=== PATIENT | female | born 1945 | race Caucasian/White ===

== ENCOUNTER → 2018-11-04 | Outpatient (CLI) | payer MEDICARE | END | disposition home or self-care (01) | LOC: PCVCCLINIC 11:50 | PROVIDERS: ATTEND Internal Medicine | DX: R01.1 Cardiac murmur, unspecified (principal); I10 Essential (primary) hypertension; E78.5 Hyperlipidemia, unspecified; E11.9 Type 2 diabetes mellitus without complications; M19.90 Unspecified osteoarthritis, unspecified site | CPT/HCPCS: 93005; G0463 ==

== ENCOUNTER → 2018-11-15 | Outpatient (CLI) | payer MEDICARE ==
--- NOTE | 2018-11-15 12:55 | PCVCIMAG ---
APPROVED REPORT Study performed: 11/15/2018 09:18:20 EXAM: Comprehensive 2D, Doppler, and color-flow Echocardiogram Patient Location: Echo lab Status: routine BSA: 1.80 HR: 72 bpmBP: 144/80 mmHg Rhythm: NSR Other Information Study Quality: Adequate Risk Factors: Cardiac Risk Factors: HTN, DM, Hyperlipidemia Indications Murmur 2D Dimensions IVSd: 16.76 (7-11mm)LVOT Diam: 19.82 (18-24mm) LVDd: 38.28 mm PWd: 11.83 (7-11mm)Ascending Ao: 31.07 (22-36mm) LVDs: 24.43 (25-40mm) Left Atrium: 41.59 (27-40mm) Aortic Root: 28.69 mm LV Single Plane 4CH: 50.52 % Volumes Left Atrial Volume (Systole) Single Plane 4CH: 49.04 mLSingle Plane 2CH: 59.00 mL LA ESV Index: 32.00 mL/m2 Aortic Valve AoV Peak Mynor.: 2.45 m/s AO Peak Gr.: 24.01 mmHgLVOT Max P.96 mmHg AO Mean Gr.: 12.42 mmHg AO V2 Mean: 1.67 m/sLVOT Max V: 1.32 m/s AO V2 VTI: 49.11 cm ANTHONY Vmax: 1.66 cm2 Mitral Valve E/A Ratio: 0.8 MV Decel. Time: 242.50 ms MV E Max Mynor.: 1.12 m/s MV A Mynor.: 1.32 m/s MV PHT: 70.33 ms TDI E/Lateral E': 14.00E/Medial E': 18.67 Medial E' Mynor.: 0.06 m/s Lateral E' Mynor.: 0.08 m/s Pulmonary Valve PV Peak Gr.: 2.54 mmHg Pulmonary Vein P Vein S: 0.73 m/sP Vein A: 0.37 m/s P Vein D: 0.39 m/sP Vein A Dur.: 69.2 msec P Vein S/D Ratio: 1.87 Left Ventricle The left ventricle is normal size. There is normal LV segmental wall motion. Mild concentric left ventricular hypertrophy. Left ventricular systolic function is normal. The left ventricular ejection fraction is within the normal range. LVEF is 60-65%. Mild diastolic dysfunction is present (impaired relaxation pattern). Right Ventricle The right ventricle is normal size. The right ventricular systolic function is normal. Atria The left atrium size is normal. The right atrium size is normal. Aortic Valve The aortic valve is mildly calcified. No aortic regurgitation is present. There is mild valvular aortic stenosis. Calculated aortic valve area is 1.7 cm2 with maximum pressure gradient of 24 mmHg and mean pressure gradient of 12 mmHg. Mitral Valve Mild mitral annular calcification. There is no mitral valve regurgitation noted. No evidence of mitral valve stenosis. Tricuspid Valve The tricuspid valve is normal in structure. There is no tricuspid valve regurgitation noted. Pulmonic Valve The pulmonary valve is normal in structure. There is no pulmonic valvular regurgitation. Great Vessels The aortic root is normal in size. IVC is normal in size and collapses >50% with inspiration. Pericardium There is no pericardial effusion. <Conclusion> Left ventricular systolic function is normal. There is normal LV segmental wall motion. LVEF is 60-65%. Mild diastolic dysfunction The aortic valve is mildly calcified, mildly stenotic. No insufficiency Calculated aortic valve area is 1.7 cm2 with maximum pressure gradient of 24 mmHg and mean pressure gradient of 12 mmHg. Mild mitral annular calcification. No mitral valve regurgitation Pulmonary artery pressure could not be reliably ascertained There is no pericardial effusion.
== END | disposition home or self-care (01) ==
LOC: PCVCIMAG 09:06
PROVIDERS: ATTEND Internal Medicine
DX: I10 Essential (primary) hypertension (principal); E11.9 Type 2 diabetes mellitus without complications; E78.5 Hyperlipidemia, unspecified; R01.1 Cardiac murmur, unspecified
CPT/HCPCS: 36415; 93306; G0463

== ENCOUNTER → 2018-11-29 | Outpatient (CLI) | payer MEDICARE | END | disposition home or self-care (01) | LOC: PCVCCLINIC 11:31 | PROVIDERS: ATTEND Internal Medicine | DX: I35.0 Nonrheumatic aortic (valve) stenosis (principal); I10 Essential (primary) hypertension; E11.9 Type 2 diabetes mellitus without complications; E78.5 Hyperlipidemia, unspecified; M19.90 Unspecified osteoarthritis, unspecified site; Z88.1 Allergy status to other antibiotic agents | CPT/HCPCS: G0463 ==